=== PATIENT | female | born 1980 | race Caucasian/White ===

== ENCOUNTER 2016-08-18 16:03 | Inpatient (IN) | payer OTHER ==
[~2016-08-18] VITALS: Ht 170.2 cm; Wt 59.0 kg
--- NOTE | 2016-08-18 17:01 | NUR ---
PT TO ED FOR FEVERS/CHILLS/ALL OVER BODY PAIN S/P SPIDER BITE 1 WEEK AGO. PT NOTED WITH BITE TO L SHOULDER BLADE. BACK RED/HOT TO TOUCH. TEMP 104.0 IN TRIAGE, HR 156 APICALLY. PT AWAKE/ALERT WITH EASY WOB. MEDICATED WITH 650MG TYLENOL AND 400MG MOTRIN IN TRIAGE. PRECIOUS Rod TO TRIAGE FOR EVAL.
--- NOTE | 2016-08-18 17:06 | NUR ---
PT AMB WITH SLOW GAIT TO ROOM 6, SUPPORTED BY THIS RN. REPORTS DIZZINESS UPON STANDING AND THROBBING VIGIL. DENIED OFFER FOR WHEELCHAIR. TO ROOM 6, PLACED ON PRECIOUS SUE AND MD NOVAK AT BEDSIDE FOR EVAL.
--- NOTE | 2016-08-18 17:15 | ED SKIN/ALLERGY COMPLAINT ---
History of Present Illness General Chief Complaint: Animal/Insect Bite Stated Complaint: ?INSECT BITE Source: patient, family, old records Exam Limitations: no limitations Vital Signs & Intake/Output Vital Signs & Intake/Output Vital Signs Date Time Temp Pulse Resp B/P B/P Pulse O2 O2 Flow FiO2 Mean Ox Delivery Rate 08/18 1941 98.6 08/18 1941 98.6 08/18 1937 98.6 107 18 116/67 99 Room Air 08/18 1701 104.0 08/18 1701 104.0 08/18 1651 104.0 156 20 123/75 99 Room Air Triage Note: PT TO ED FOR FEVERS/CHILLS/ALL OVER BODY PAIN S/P SPIDER BITE 1 WEEK AGO. PT NOTED WITH BITE TO L SHOULDER BLADE. BACK RED/HOT TO TOUCH. TEMP 104.0 IN TRIAGE, HR 156 APICALLY. PT AWAKE/ALERT WITH EASY WOB. MEDICATED WITH 650MG TYLENOL AND 400MG MOTRIN IN TRIAGE. PRECIOUS GARLAND H TO TRIAGE FOR EVAL. Triage Nurses Notes Reviewed? yes Onset: Abrupt Duration: day(s): (5), constant Timing: recent history Severity: moderate, severe Severity Numbers: 10 Location: BACK No Modifying Factors: none : No Patient currently breastfeeds: No HPI: Is a 36-year-old female with no medical history presents complaining of fever chills poor appetite and generalized bodyaches for the past 5 days. The patient states that she believes she may benefit an insect or spider on her back. She states last Thursday she began to notice a rash that was painful aching throbbing associated with fever chills. She denies a discharge no other rashes were body. She's been taking Tylenol Motrin for her fevers without improvement she reports to nausea denies vomiting poor appetite no sick contacts no recent travel no recent antibiotic use. She denies chest pain abdominal pain shortness of breath (ADAL LANG,GILL) Allergies Coded Allergies: codeine (N/V 08/18/16) morphine (FEVER, HIVES 08/18/16) povidone-iodine (From BETADINE) (FEVER, HIVES 08/18/16) soap (From BETADINE) (FEVER, HIVES 08/18/16) Reconcile Medications Multivitamin (Multi-Day Vitamins) 1 EACH TABLET 1 TAB PO DAILY SUPPLEMENT ( Reported) (KISHORE DOLL,KIRIT) Past History Travel History Traveled to [place] past 21 day No Medical History Any Pertinent Medical History? none Neurological: NONE EENT: NONE Cardiovascular: NONE Respiratory: NONE Gastrointestinal: NONE Hepatic: NONE Renal: NONE Musculoskeletal: NONE Psychiatric: NONE Endocrine: NONE Surgical History Surgical History: non-contributory Psychosocial History What is your primary language Mohawk Tobacco Use: Never used Family History Hx Contributory? No (GILL DAVILA) Review of Systems Review of Systems Constitutional: Reports: see HPI. All Other Systems: Reviewed and Negative Comments Review of systems: See HPI, All other systems negative. Constitutional, chills fever, malaise no weight loss HEENT: no sore throat no congestion, no ear pain Cardiovascular: No chest pain , no palpitation , no orthopnea Skin: no rashes, no change in skin Respiratory: No dyspnea no cough no sputum GI: nausea no vomiting, no diarrhea, no bloating/constipation : No dysuria No hematuria, Muscle skeletal: No joint pain, no back pain, no neck pain, Neurologic: No numbness no headache Psych: No stress Heme/endocrine: No bruising Immunology: No lymphadenopathy (GILL DAVILA) Physical Exam Physical Exam General Appearance: well developed/nourished, no apparent distress, alert, awake Comments: Well-developed well-nourished person in no acute distress HEENT: Normal EENT exam; PERRL, EOMI, HEAD is atraumatic. moist mucous membranes. Neck: Supple,, normal range of motion Back: Nontender, no CVA tenderness. Full range of motion Cardiovascular: Tachycardic, regular rhythm no murmurs rubs Respiratory: Chest nontender.There were no bony deformities, no asymmetry. No respiratory distress. Patient speaking in full complete sentences. Breath sounds clear to auscultation bilaterally: NO W/R/R Abdomen: Soft, nontender nondistended, Extremity: No edema, full range of motion of extremities,5 out of 5 strength noted to bilateral upper and lower extremities Neuro: Alert oriented x3, motor sensory normal, There were no obvious focal neurologic abnormalities. Skin: There is a large area of erythema noted to the upper back extending acrtoss the entire upper back with a central vesicular lesion 2x 2cm, tender to palpation no induration or fluctuance no discharge elicited from the vesicles No appreciable rash on exposed skin, skin is warm and dry. Psych: Mood and affect is normal, memory and judgment is normal. (ADAL LANG,GILL) Progress Differential Diagnosis: abscess/cellulitis, contact dermatitis, drug reaction, erythema multiforme, lyme disease, RMSF, shingles, urticaria Plan of Care: Orders Procedure Date/time Status Vital Signs 08/18 2010 Active Teach/Educate 08/18 2010 Active Pain Treatment and Response 08/18 2010 Active Nutritional Intake, Monitor 08/18 2010 Active Isolation 08/18 2010 Active Intake & Output 08/18 2010 Active Patient Care Conference 08/18 2010 Active Activity/Ambulation 08/18 2010 Active LACTIC ACID 08/19 1999 Active Pathway - chart 08/18 1938 Active Admit to inpatient 08/18 1815 Active TRC EVALUATION (GEN) 08/18 1803 Active OXYGEN SETUP (GEN) 08/18 1803 Active Pathway - chart 08/18 1803 Active House Staff 08/18 1803 Active Patient Data 08/18 1803 Active Code Status 08/18 1803 Active Patient Data 08/18 1759 Active LYME TITRE 08/18 1709 Active EKG 08/18 1701 Active Saline Lock 08/18 1700 Active BLOOD CULTURE 08/18 1700 Active LACTIC ACID 08/18 1700 Complete COMPREHENSIVE METABOLIC PANEL 08/18 1700 Complete CBC WITHOUT DIFFERENTIAL 08/18 1700 Complete VTE Mechanical Prophylaxis 08/18 UNK Active Vital Signs 08/18 UNK Active MISTAKE 08/18 UNK Active Intake & Output 08/18 UNK Active Current Medications Sig/Stu Start time Last Medication Dose Stop Time Status Admin Doxycycline Hyclate 100 MG Q12H 08/19 0800 AC (Vibramycin) Sodium Chloride 100 ML (Normal Saline 0.9%) Acetaminophen 650 MG Q4P PRN 08/18 1944 AC (Tylenol) Ibuprofen 400 MG Q6P PRN 08/18 1944 AC (Motrin) Sodium Chloride 1,000 ML ONCE ONE 08/18 1944 AC 08/18 (Normal Saline 0.9%) 08/19 Laboratory Tests 08/18/16 1734: Lyme Disease Antibody Pending 08/18/16 1720: Anion Gap 11, Estimated GFR > 60, BUN/Creatinine Ratio 8.8, Glucose 114 H, Lactic Acid 1.6, Calcium 9.1, Total Bilirubin 0.3, AST 68 H, ALT 94 H, Alkaline Phosphatase 83, Total Protein 7.0, Albumin 3.9, Globulin 3.1, Albumin/ Globulin Ratio 1.3, CBC w Diff NO MAN DIFF REQ, RBC 4.78, MCV 82.6, MCH 27.0, RDW 13.6, MPV 7.2 L, Gran % 85.2 H, Lymphocytes % 7.4 L, Monocytes % 6.8, Eosinophils % 0.1, Basophils % 0.5, Absolute Granulocytes 5.4, Absolute Lymphocytes 0.5 L, Absolute Monocytes 0.4, Absolute Eosinophils 0, Absolute Basophils 0, PUBS MCHC 32.6 L Microbiology 08/18 173 BLOOD: Blood Culture - RECD 08/19 1719 BLOOD: Blood Culture - RECD Labs ordered old records reviewed patient was seen and evaluated by Dr. Paredes who agrees with plan Discussed with the patient family at length all of her lab results today case was discussed with Dr. Santamaria who will admit patient is in agreement with plan 1800 Patient seen and evaluated by Dr. Santamaria advised to give doxycycline 100 mg IV for suspected Lyme (GILL DAVILA) Initial ED EKG: STACH AT 130, NO ACUTE ST SEG CHANGES (GILL DAVILA) Departure Departure Time of Disposition: 1753 Disposition: HOME OR SELF CARE Condition: Stable Clinical Impression Primary Impression: Cellulitis Referrals: RY DOLL,GLEN Departure Forms: Customer Survey General Discharge Information Admission Note Spoke With: SAMIRA SANTAMARIA MD Documentation of Exam: Documentation of any treatments & extenuating circumstances including Concerns Regarding Discharge (functional status, medication knowledge or non-compliance, living conditions, etc.) that warrant an admission rather than observation: WILL WILL REQUIRE IV ANTIBIOTICS, IV FLUIDS, ID CONSULT, TREND LABS AND LYME TITRE PREMATURE DISCHARGE WOULD BE MEDICALLY HARMFUL (GILL DAVILA) PA/WEATHER REPORTER Co-Sign Statement Statement: ED Attending supervision documentation- [X] I saw and evaluated the patient. I have also reviewed all the pertinent lab results and diagnostic results. I agree with the findings and the plan of care as documented in the PA's/WEATHER REPORTER's documentation. [X] I have reviewed the ED Record and agree with the PA's/WEATHER REPORTER's documentation. [] Additions or exceptions (if any) to the PAs/WEATHER REPORTER's note and plan are summarized below: [] (KISHORE DOLL,KIRIT)
[2016-08-18 17:32] LABS: ABSOLUTE BASOPHIL COUNT 0 /CUMM (0.0-0.2); ABSOLUTE EOSINOPHIL COUNT 0 /CUMM (0.0-0.7); ABSOLUTE GRANULOCYTE CT 5.4 /CUMM (1.4-6.5); ABSOLUTE LYMPH COUNT 0.5 /CUMM (1.2-3.4); ABSOLUTE MONOCYTE COUNT 0.4 /CUMM (0.10-0.60); BASOPHIL % 0.5 % (0.0-2.0); EOSINOPHIL % 0.1 % (0-5); GRANULOCYTE % 85.2 % (42.2-75.2); HEMATOCRIT 39.4 % (37-47); MEAN CORPUSCULAR HGB CONC 32.6 G/DL (33.0-37.0); MEAN CORPUSCULAR VOLUME 82.6 FL (81.0-99.0); MEAN PLATELET VOLUME 7.2 FL (7.4-10.4); PLATELET COUNT 220 /CUMM (130-400); RBC DISTRIBUTION WIDTH 13.6 % (11.5-14.5); RED BLOOD CELL CT 4.78 /CUMM (4.20-5.40); WHITE BLOOD CELL COUNT 6.3 /CUMM (4.8-10.8)
--- NOTE | 2016-08-18 17:37 | NUR ---
2ND SET OF CULTURES AND SST SENT BY THIS MST.
--- NOTE | 2016-08-18 18:22 | History & Physical ---
CLAYTON DOLL,[facility] 08/18/161818: General Information and HPI MD Statement: I have seen and personally examined VICKI BEEBE and documented this H&P. The patient is a 36 year old F who presented with a patient stated chief complaint of [??animal bite, fever, myalgias]. Source of Information: patient, EMS Exam Limitations: no limitations History of Present Illness: Patient is a 36 YO F with no significant PMH presented to the [facility] ER with fevers chills and progressively worsening myalgias started a week ago. Last patient started noticing sore spot on her left shoulder blade region, which turned out to be an open wound after 2 days and now surrounded by a few bumps (papules) associated with significant tenderness. She also started to develop headache, feeling hot around the sore spot, fevers and chills, myalgias which were progressively worsened despite occasional Tylenol and ibuprofen. She also reports poor appetite with a dry cough and pain with deep breathing. She denies any heart racing, chest pain, any syncopal episodes /falls. She denies any nausea, vomiting, diarrhea, changes with urination/bowel habits. Last before weekend patient remembers doing gardening with her boyfriend, she couldn't recall any tick/spider bite in the past few days. 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 In addition house is surrounded by mayers, trees with small brown spiders (neither brown recluse nor black ). She had one dog, two cats at home. No primary care physician No smoking/alcohol/drugs. Allergies/Medications Allergies: Coded Allergies: codeine (N/V 08/18/16) morphine (FEVER, HIVES 08/18/16) povidone-iodine (From BETADINE) (FEVER, HIVES 08/18/16) soap (From BETADINE) (FEVER, HIVES 08/18/16) Home Med list Multivitamin (Multi-Day Vitamins) 1 EACH TABLET 1 TAB PO DAILY SUPPLEMENT ( Reported) Compliance With Home Meds: UNKNOWN (gus she is is) Past History Travel History Traveled to [place] past 21 day No Medical History Neurological: NONE EENT: NONE Cardiovascular: NONE Respiratory: NONE Gastrointestinal: NONE Hepatic: NONE Renal: NONE Musculoskeletal: NONE Psychiatric: NONE Endocrine: NONE Surgical History Surgical History: non-contributory Past Family/Social History Psychosocial History Past Psychosocial History Unobtainable at this time Where do you live? Home Who Do You Live With? self Services at Home: None Primary Language: Bermudian Smoking Status: Never Smoked ETOH Use: denies use Illicit Drug Use: denies illicit drug use Functional Ability ADLs Independent: dressing, eating, toileting, bathing. Ambulation: independent IADLs Independent: shopping, housework, finances, food prep, telephone, transportation , medication admin. Sexual History Sexually Active Yes Employment History Employment Employed Profession/Employer works in [employer] Review of Systems Review of Systems Constitutional: Reports: see HPI, chills, fever, malaise, weakness. EENTM: Reports: no symptoms. Cardiovascular: Reports: no symptoms. Respiratory: Reports: cough. GI: Reports: no symptoms. Genitourinary: Reports: no symptoms. Musculoskeletal: Reports: back pain, muscle pain. Skin: Reports: change in skin color, lesions. Neurological/Psychological: Reports: see HPI. Hematologic/Endocrine: Reports: no symptoms. Immunologic/Allergic: Reports: no symptoms. All Other Systems: Reviewed and Negative Exam & Diagnostic Data Last 24 Hrs of Vital Signs/I&O Vital Signs Date Time Temp Pulse Resp B/P B/P Pulse O2 O2 Flow FiO2 Mean Ox Delivery Rate 08/18 1701 104.0 08/18 1701 104.0 08/18 1651 104.0 156 20 123/75 99 Room Air Physical Exam General Appearance Alert, Oriented X3, Cooperative, No Acute Distress Skin a spot on the left shoulder blade surrounded by annular erythema without any evident discharge, blisters. Significant tenderness to palpation with small papules surrounding the lesion, hot to touch HEENT Atraumatic, PERRLA Neck Supple Cardiovascular Regular Rate, Normal S1, Normal S2 Lungs Clear to Auscultation, Normal Air Movement Abdomen Normal Bowel Sounds, Soft, No Tenderness Neurological Normal Speech, Strength at 5/5 X4 Ext, Normal Tone, Sensation Intact, Cranial Nerves 3-12 NL, Reflexes 2+ Extremities No Clubbing, No Cyanosis, No Edema Vascular Normal Pulses, Pulses Symmetrical Body Front and Back (Adult) 1) Skin lesion surrounded by annular erythema 2) Extensive tattoos 3) Tattoos 4) Tattoos Last 24 Hrs of Labs/Deejay: Laboratory Tests 08/18/161733: Lyme Disease Antibody Pending 08/18/161719: Anion Gap 11, Estimated GFR > 60, BUN/Creatinine Ratio 8.8, Glucose 114 H, Lactic Acid 1.6, Calcium 9.1, Total Bilirubin 0.3, AST 68 H, ALT 94 H, Alkaline Phosphatase 83, Total Protein 7.0, Albumin 3.9, Globulin 3.1, Albumin/ Globulin Ratio 1.3, CBC w Diff NO MAN DIFF REQ, RBC 4.78, MCV 82.6, MCH 27.0, RDW 13.6, MPV 7.2 L, Gran % 85.2 H, Lymphocytes % 7.4 L, Monocytes % 6.8, Eosinophils % 0.1, Basophils % 0.5, Absolute Granulocytes 5.4, Absolute Lymphocytes 0.5 L, Absolute Monocytes 0.4, Absolute Eosinophils 0, Absolute Basophils 0, PUBS MCHC 32.6 L Microbiology 08/18 1733 BLOOD: Blood Culture - RECD 08/19 1719 BLOOD: Blood Culture - RECD Diagnostic Data EKG Results Sinus tachycardia with normal MD interval Assessment/Plan Assessment: Patient is a 36-year-old female with no significant past medical history who works in animal [employer] where she comes across with dogs with ticks embedded in them presented with fever, chills, myalgias, fatigue for the past 1 week. She is febrile at presentation with a Tmax of 104, tachycardic (HR 156), appears toxic. On examination there is a skin lesion in the left shoulder. With tender annular rash although masked with extensive tattoos. At this point my differentials include acute Lyme's disease, spider bite (probably brown recluse) , STARI (southern tick associated rash illness). Admitted to general medicine floor Acute febrile illness with rash - presumably acute Lyme's disease * Started on IV Unasyn and IV doxycycline in the ED * Continue IV doxycycline 100 mg every 12 * She doesn't really recall any tick bite/spider bite recently - presumably tick bite due to associated anesthetic effect * Aggressive hydration with IV fluids * IV Tylenol/oral Tylenol to maintain temperature within normal limits * Check Lyme titers * Close monitoring of vitals * Pain control with Tylenol/ibuprofen * Patient reports hives secondary to opiates - we will try to avoid at the moment to prevent confusion * ID consult tomorrow morning if required * Daily CBC (no leukopenia/thrombus cytopenia/anemia at the moment) Extensive tattoos * Patient had tattoos all over her body. * Rash is not clearly demarcated secondary to tattoos. * Check hepatitis panel * Denies any drug abuse/alcohol/smoking DVT prophylaxis * Alps CODE STATUS * Full code As Ranked By This Provider Problem List: 1. At high risk for tick borne illness 2. Lyme disease 3. Animal bite with open wound Core Measures/Miscellaneous Acute Coronary Syndrome ACS Diagnosis: No Cerebrovascular Accident CVA/TIA Diagnosis: No Congestive Heart Failure CHF Diagnosis: No VTE (View Protocol) VTE Risk Factors: Immobility, paresis [facility] prophylaxis d/t: No contraindications No VTE Pharm Prophylaxis d/t: No contraindications VTE Diagnosis: No VTE Type: NONE VTE Confirmed by (Test): NONE Sepsis (View Protocol) Severe Sepsis Present: No Septic Shock Septic Shock Present: No Miscellaneous Documentation Attending Case Discussed With: Alireza Lugo MD Primary Care Physician: PATIENT HAS NO PRIMARY CARE DR Patient sees these Specialists NO one Level of Patient Care: General Medicine NIKKI BALLARD 08/18/16 1852: Resident Review Statement Resident Statement: examined this patient, discussed with spring intern, agreed with spring intern, discussed with family, reviewed EMR data (avail) Other Findings: This is a 36 YO F w/no significant PMH who presents to the ED for fever to 104 degrees, chills, arthralgia, myalgias, headache for approx 5 days. She noted a tender erythemtous rash on her back, but does not remember having a tick bite. Reports h/o tick exposure. Denies any n/v/dizziness, cough,dyspnea, abd pain. Ph/ex on admission: Max Temp of 104, MD 156, BP stable, adequate o2 sat on RA. NAD, AAOx3, HEENT: HNCAT, PERRLA, EOMI, Dry mucous membrane, NL pharynx. Neck: supple,no LAD CV: tachycardic, no murmur. Lungs: CTABL, Abd: NL BS, NT, ND. Ext: no LE edema. Neurology : CN 3-12 intact, NL speech, sensation intact, strength intact. Skin: erythematous lesion on upper back extending from right shoulder to left. Central vesicular lesions noted on the rash. Multiple tattoos on different parts of body including back. Available lab and imaging data reviwed. Assessment/Plan: #Fever, skin rash: h/o tick exposure,also has concern for spider bite, no leukocytosis noted. No discharge or pus. Likely lyme disease. Patient was started on Doxycycline 100 MG BID. Lyme titers pending. Consider ID evaluation. #Sinus Tachycardia: no murmur. Likely 2/2 fever and dehydration. Will maintain the patient on tylenol and ibuprofen prn and IV hydation. #DVT PPx: SC Lovenox #Full code. ALIREZA LUGO MD 08/18/16 2010: Attending MD Review Statement Attending Statement Attending MD Statement: examined this patient, discuss w/resident/PA/SCHOOL LIBRARY MEDIA PROGRAM DIRECTOR, agreed w/resident/PA/SCHOOL LIBRARY MEDIA PROGRAM DIRECTOR, discussed with family, reviewed EMR data (avail), reviewed images, amended to note Attending Assessment/Plan: The patient is a 36 yo female without significant PMH who presented in the [facility] with 5 day history of fever to 104 degrees, myalgias/arthralgias./ chills/headache and malaise. She did note some tenderness of her upper back and erythema. She was concerned she may have had a spider bite, however did not experience a bite. She was working in the garden and does have tick exposure. She denied any abdominal pain, nausea, vomiting, dysuria, cough or dyspnea. She has had diminished appetite. Physical Exam: T 104, P 156-130, R 20, BP 123/75,PO 99% RA HEENT: eyes- PERRLA, EOMI apryl- dry mucosa Neck: no adenopathy Chest: clear Cor: tachy, reg, nl S1, S2 w/o murm Abd: BS+, soft, NT, - HSM Ext: no edema Neuro: alert & oriented x 2, non-focal exam Derm: + large area of erythema on upper back with mild tenderness, central vesicular lesion (small), + warmth, multiple tattoos on back and other parts of body Labs/Tests- as above Impression/Plan: #Fever/Chills- with normal WBC and erythematous rash on back. Symptoms most suggestive of Lyme disease. Cannot entirely exclude infected bite. No purulence. Has significant fever. Plan: Admit to general medicine. [place] culture and begin IV Abx (Unasyn given in ED and will add Doxycycline). Check Lyme titer/tick panel. Please draw border with marker around area of erythema on back. Consider ID evaluation pending clinical course. #Tachycardia- sinus tachycardia with no murm. Most likely secondary to fever and volume depletion (has had high fever). Plan: Agree with tylenol/ibuprofen and IV hydration. Follow HR.
--- NOTE | 2016-08-18 19:08 | NUR ---
PT ADMITTED TO ROOM 204-2
[2016-08-18] MEDS ORDERED: MULTI-DAY VITA1 EACH PO (19:52)
--- NOTE | 2016-08-18 20:10 | Admission Certification ---
Admission Certification Certification Statement - As attending physician, I certify that at the time of - admission, based on clinical presentation, severity of - symptoms, need for further diagnostic testing and - therapeutic interventions, and risk of adverse outcomes - without in-hospital treatment, in my clinical assessment, - this patient requires an acute hospital stay for a minimum - of two nights or longer. I have also considered psychsocial - factors such as support system, advanced age, financial - issues, cognitive issues, and failed out-patient treatments, - past re-admission history, safety of patient, and lack of - compliance as applicable. Specific rationale supporting this admission is: The patient presents with fever to 104 degrees, tachycardia (130's) and back lesion that most likely represent acute Lyme disease (cannot exclude cellulitis) . Needs admission for IV fluids, tylenol/ibuprofen, flores culture and check Tick pane. IV antibiotics (Unasyn given in ED and added Doxycycline).
--- NOTE | 2016-08-18 20:31 | NUR ---
PT ARRIVED FROM ER VIA STRETCHER. A&OX3, VSS. LEFT SHOULDER BLADE WITH SMALL BITE, UPPER BACK RED AND WARM TO TOUCH. ORIENTED PT TO ROOM AND CALL SYSTEM. WILL MONITOR.
[2016-08-18 23:04] VITALS: BP 102/68
[2016-08-19 02:45] VITALS: BP 110/70
--- NOTE | 2016-08-19 02:52 | NUR ---
PT NOTED TO HAVE ORBITAL EDEMA AND INCREASED WEAKNESS. GATE SUPERVISOR ALLEGRA NOTIFIED AND UP TO SEE PT. PT'S VS REMAIN STABLE. WILL MONITOR
[2016-08-19 06:30] VITALS: BP 90/57
[2016-08-19 08:55] LABS: ABSOLUTE BASOPHIL COUNT 0 /CUMM (0.0-0.2); ABSOLUTE EOSINOPHIL COUNT 0 /CUMM (0.0-0.7); ABSOLUTE GRANULOCYTE CT 7.6 /CUMM (1.4-6.5); ABSOLUTE LYMPH COUNT 0.8 /CUMM (1.2-3.4); ABSOLUTE MONOCYTE COUNT 0.6 /CUMM (0.10-0.60); BASOPHIL % 0.2 % (0.0-2.0); EOSINOPHIL % 0.2 % (0-5); GRANULOCYTE % 84.8 % (42.2-75.2); HEMATOCRIT 34.6 % (37-47); MEAN CORPUSCULAR HGB 26.9 PG (27.0-31.0); MEAN CORPUSCULAR HGB CONC 32.4 G/DL (33.0-37.0); MEAN PLATELET VOLUME 7.8 FL (7.4-10.4); PLATELET COUNT 164 /CUMM (130-400); RBC DISTRIBUTION WIDTH 14.1 % (11.5-14.5); RED BLOOD CELL CT 4.16 /CUMM (4.20-5.40)
--- NOTE | 2016-08-19 10:48 | PN- Housestaff ---
CLAYTON DOLL,CARLITO 08/19/16 1048: Subjective Follow-up For: febrile illness with rash Subjective: I saw the patient today morning She is still having significant body aches with nausea. Overall feels better. No overnight events. She still had mild fevers, feeling weak, sore. able to tolerate food. Review of Systems Constitutional: Reports: see HPI. Comments: ROS negative except the above Objective Last 24 Hrs of Vital Signs/I&O Vital Signs Date Time Temp Pulse Resp B/P B/P Pulse O2 O2 Flow FiO2 Mean Ox Delivery Rate 08/19 0630 98.4 107 18 90/57 99 Room Air 08/19 0245 99.0 115 110/70 100 08/18 2304 99.0 104 20 102/68 99 Room Air 08/18 2208 Room Air Room Air 08/18 194 98.6 08/18 1942 98.6 08/18 1938 98.6 107 18 116/67 99 Room Air 08/18 1701 104.0 08/18 1701 104.0 08/18 1651 104.0 156 20 123/75 99 Room Air Intake & Output 08/19 1600 08/19 0800 08/19 0000 Intake Total 450 2400 Output Total Balance 450 2400 Intake, IV 450 2400 Patient 58.967 kg Weight Weight Reported by Patient Measurement Method Physical Exam General Appearance: Alert, Oriented X3, Cooperative Skin: lesion in the left shoulder blader with annular rash , extensive tattoos HEENT: Atraumatic, PERRLA, EOMI Neck: Supple Cardiovascular: Normal S1, Normal S2 Lungs: Clear to Auscultation, Normal Air Movement Abdomen: Normal Bowel Sounds, Soft, No Tenderness Neurological: Strength at 5/5 X4 Ext, Normal Tone, Sensation Intact Extremities: No Clubbing, No Cyanosis, No Edema Vascular: Normal Pulses, Pulses Symmetrical Current Medications: Current Medications Sig/Stu Start time Last Medication Dose Route Stop Time Status Admin Acetaminophen 650 MG .STK-MED ONE 08/19 0245 DC PO 08/19 0246 Acetaminophen 650 MG Q4P PRN 08/18 194 AC 08/19 PO 0251 Acetaminophen 650 MG ONCE ONE 08/18 1700 DC 08/18 PO 08/18 170 1701 Ampicillin Sodium/ 0 .STK-MED ONE 08/18 1743 DC Sulbactam Sodium .ROUTE Ampicillin Sodium/ 3,000 MG ONCE ONE 08/18 1715 DC 08/18 Sulbactam Sodium IV 08/18 1744 1737 Sodium Chloride 100 ML Cyclobenzaprine HCl 10 MG ONCE ONE 08/19 0300 DC 08/19 PO 08/19 0301 0315 Doxycycline Hyclate 100 MG Q12H 08/19 0800 AC 08/19 Sodium Chloride 100 ML IV 0823 Doxycycline Hyclate 100 MG ONCE ONE 08/18 1815 DC 08/18 Sodium Chloride 100 ML IV 08/18 1920 1910 Enoxaparin Sodium 40 MG DAILY 08/19 1000 AC 08/19 SC 0930 Ibuprofen 400 MG Q6P PRN 08/18 1945 AC 08/18 PO 2218 Ibuprofen 400 MG ONCE ONE 08/18 1700 DC 08/18 PO 08/18 1701 1701 Ketorolac 30 MG Q6-PRN PRN 08/19 0300 AC 08/19 Tromethamine IV 1033 Ketorolac 0 .STK-MED ONE 08/18 1739 DC Tromethamine .ROUTE Ketorolac 30 MG ONCE ONE 08/18 1700 DC 08/18 Tromethamine IV 08/18 1701 1735 Lidocaine 1 PAT DAILY 08/19 1000 DC EXT Lidocaine 1 PAT DAILY 08/19 0300 AC 08/19 EXT 0314 Ondansetron HCl 4 MG Q6P PRN 08/19 1300 AC IV Ondansetron HCl 4 MG ONCE ONE 08/19 0900 DC 08/19 IV 08/19 0901 0900 Sodium Chloride 1,000 ML ONCE ONE 08/18 1945 DC 08/18 IV 08/19 0224 2008 Sodium Chloride 1,000 ML BOLUS ONE 08/18 171 DC 08/18 IV 08/18 1814 1830 Sodium Chloride 1,000 ML BOLUS ONE 08/18 1700 DC 08/18 IV 08/18 1759 1731 Sodium Chloride 1,000 ML BOLUS ONE 08/18 1700 DC 08/18 IV 08/18 1759 1731 Last 24 Hrs of Lab/Deejay Results Last 24 Hrs of Labs/Mics: Laboratory Tests 08/19/16 0750: CBC w Diff MAN DIFF ORDERED, RBC 4.16 L, MCV 83.0, MCH 26.9 L, RDW 14.1, MPV 7.8, Gran % 84.8 H, Lymphocytes % 8.5 L, Monocytes % 6.3, Eosinophils % 0.2, Basophils % 0.2, Absolute Granulocytes 7.6 H, Segmented Neutrophils 74, Band Neutrophils 8 H, Absolute Lymphocytes 0.8 L, Lymphocytes 12 L, Monocytes 5, Absolute Monocytes 0.6, Absolute Eosinophils 0, Basophils 1, Absolute Basophils 0, Platelet Estimate VERIFIED BY SMEAR, Poikilocytosis 1+, Ovalocytes 1+, Vishnu Cells 1+, PUBS MCHC 32.4 L 08/19/16 0630: Anion Gap 8, Estimated GFR > 60, BUN/Creatinine Ratio 8.3, Lactic Acid 1.0 08/18/16 2000: Lactic Acid Cancelled Assessment/Plan Assessment: Patient is a 36-year-old female with no significant past medical history 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 She is febrile at presentation with a Tmax of 104, tachycardic (HR 156), appears toxic. On examination there is a skin lesion in the left shoulder. With tender annular rash although masked with extensive tattoos. At this point my differentials include acute Lyme's disease, spider bite (probably brown recluse) , STARI (southern tick associated rash illness). Admitted to general medicine floor Acute febrile illness with rash - presumably acute Lyme's disease * Started on IV Unasyn 1.5gm Q6 to cover both cellulitis and lymes although its unclear for now. * She doesn't really recall any tick bite/spider bite recently - presumably tick bite due to associated anesthetic effect * Lyme titers shows 0.99, pending further results * Pain control with Tylenol/ibuprofen * Patient reports hives secondary to opiates - we will try to avoid at the moment to prevent confusion * is on board - appreciate recommendations. * Daily CBC (no leukopenia/thrombus cytopenia/anemia at the moment) Extensive tattoos * Patient had tattoos all over her body. * Rash is not clearly demarcated secondary to tattoos. * Check hepatitis panel * Denies any drug abuse/alcohol/smoking DVT prophylaxis * Alps CODE STATUS * Full code Problem List: 1. Lyme disease 2. Cellulitis 3. At high risk for tick borne illness 4. Animal bite with open wound Pain Ratin Pain Location: Left shoulder pain Pain Goal: Pain 4 or less Pain Plan: Tylenol Ibuprofen Tomorrow's Labs & Rationales: cbc to monitor H&H, white count and platelets ISAURO CHASE MD 08/19/16 1211: Attending MD Review Statement Attending Statement Attending MD Statement: examined this patient, discuss w/resident/PA/LEI MAKER, agreed w/resident/PA/LEI MAKER, reviewed EMR data (avail) Attending Assessment/Plan: 36F no PMH presenting with 1 week of rash on her left upper back that has become warmer, more tender, has spread to involve more of her left upper back, now with fever 104, myalgia, and weakness. Appears to have remnants of a bite torri on her back. Was doing a lot of work in the [employer] but does not recall being bit. No fluctuance or areas of fluid collection. Back is warm, erythematous, and tender without discharge. 1. Sepsis 2. Left upper back cellulitis 3. Diffuse myalgia 4. Generalized weakness Plan - Continue on general medicine - Continue Unasyn - Follow cultures - Reculture if febrile - IV hydration - Tylenol PRN - ID consult - DVT PPx
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
[2016-08-19 14:11] VITALS: BP 104/62
--- NOTE | 2016-08-19 17:43 | NUR ---
NURSING NOTE: THIS RN WAS CALLED INTO THE PATIENT'S ROOM C/O MORE SWELLING, REDNESS, IRRITATION AND PAIN TO HER RIGHT EYE. VITALS TAKEN AT THIS TIME: 99.8, 130/78, 117, 18, 94% RA. INSOLE FILLER MALKA (137) NOTIFIED AND WILL COME TO ASSESS PATIENT.
[2016-08-19 17:47] VITALS: BP 130/78
[2016-08-19 23:18] VITALS: BP 102/69
[2016-08-20 06:30] VITALS: BP 110/70
--- NOTE | 2016-08-20 07:21 | PN- Housestaff ---
CLAYTON DOLL,CARLITO 08/20/16 0720: Subjective Follow-up For: Rash with febrile illness Subjective: I signed examined the patient today morning She is doing better in terms of her back pain, neck pain. She feels her face is swollen and edematous. She is concerned about diarrhea with antibiotic intake and requested lactobacillus, (provided). She denies any fevers/chills overnight. Review of Systems Constitutional: Reports: see HPI. Comments: Otherwise negative except above Objective Last 24 Hrs of Vital Signs/I&O Vital Signs Date Time Temp Pulse Resp B/P B/P Pulse O2 O2 Flow FiO2 Mean Ox Delivery Rate 08/19 2318 98.5 90 18 102/69 99 Room Air 08/19 1747 117 18 130/78 94 Room Air 08/19 1740 99.8 08/19 1411 99.0 97 20 104/62 100 Room Air Intake & Output 08/20 0800 08/20 0000 08/19 1600 Intake Total 300 250 600 Output Total 200 Balance 100 250 600 Intake, IV 200 100 Intake, Oral 100 250 500 Number 0 Bowel Movements Output, Urine 200 Physical Exam General Appearance: Alert, Oriented X3, Cooperative Skin: skin rash - improved, still hot and tender to touch HEENT: Atraumatic, PERRLA Neck: Supple Cardiovascular: Normal S1, Normal S2 Lungs: Clear to Auscultation, Normal Air Movement Abdomen: Normal Bowel Sounds, Soft, No Tenderness Neurological: Normal Gait, Normal Speech, Strength at 5/5 X4 Ext, Normal Tone, Sensation Intact Extremities: No Clubbing, No Cyanosis, No Edema Vascular: Normal Pulses, Pulses Symmetrical Current Medications: Current Medications Sig/Stu Start time Last Medication Dose Route Stop Time Status Admin Acetaminophen 650 MG Q4P PRN 08/18 1944 AC 08/19 PO 0251 Ampicillin Sodium/ 1,500 MG Q6 08/19 1328 AC 08/20 Sulbactam Sodium IV 0534 Sodium Chloride 100 ML Doxycycline Hyclate 100 MG Q12H 08/19 0800 DC 08/19 Sodium Chloride 100 ML IV 0823 Enoxaparin Sodium 40 MG DAILY 08/19 1000 AC 08/19 SC 0930 Ibuprofen 400 MG Q6P PRN 08/18 194 AC 08/18 PO 2218 Ketorolac 30 MG Q6-PRN PRN 08/19 0300 AC 08/19 Tromethamine IV 1759 Lidocaine 1 PAT DAILY 08/19 1000 DC EXT Lidocaine 1 PAT DAILY 08/19 0300 AC 08/19 EXT 0314 Ondansetron HCl 4 MG Q6P PRN 08/19 1300 AC IV Ondansetron HCl 4 MG ONCE ONE 08/19 0900 DC 08/19 IV 08/19 09 0900 Assessment/Plan Assessment: Patient is a 36-year-old female with no significant past medical history who 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 She is febrile at presentation with a Tmax of 104, tachycardic (HR 156), appears toxic. On examination there is a skin lesion in the left shoulder. With tender annular rash although masked with extensive tattoos. At this point my differentials include acute Lyme's disease, spider bite (probably brown recluse) , STARI (southern tick associated rash illness). Admitted to general medicine floor Acute febrile illness with rash - presumably acute Lyme's disease * Started on IV Unasyn 1.5gm Q6 to cover both cellulitis and lymes although its unclear for now - as improving we will converted to Augmentin twice a day tomorrow for a total course of 14 days. * She doesn't really recall any tick bite/spider bite recently - presumably tick bite due to associated anesthetic effect * Lyme titers shows 0.99, pending further send outs * Pain control with Tylenol/ibuprofen * Patient reports hives secondary to opiates - we will try to avoid at the moment to prevent confusion * is on board - appreciate recommendations. * Daily CBC (no leukopenia/thrombus cytopenia/anemia at the moment) Extensive tattoos * Patient had tattoos all over her body. * Rash is not clearly demarcated secondary to tattoos. * Check hepatitis panel * Denies any drug abuse/alcohol/smoking DVT prophylaxis * Alps CODE STATUS * Full code Problem List: 1. Cellulitis 2. Lyme disease 3. At high risk for tick borne illness 4. Animal bite with open wound Pain Ratin Pain Location: Left shoulder blade region Pain Goal: Pain 4 or less Pain Plan: Tylenol, ibuprofen Tomorrow's Labs & Rationales: CBC - white count, H&H SALVATORE DOLL,ISAURO 08/20/16 1106: Attending MD Review Statement Attending Statement Attending MD Statement: examined this patient, discuss w/resident/PA/CLOTHING AND TEXTILES TEACHER, agreed w/resident/PA/CLOTHING AND TEXTILES TEACHER, reviewed EMR data (avail) Attending Assessment/Plan: 36F no PMH presenting with 1 week of rash on her left upper back that has become warmer, more tender, has spread to involve more of her left upper back, now with fever 104, myalgia, and weakness. Appears to have remnants of a bite torri on her back. Was doing a lot of work in the [employer] but does not recall being bit. Initially, nack warm warm, erythematous, and tender without discharge. Today, patient feels much better. She is awake and alert, and her myalgia has significant improved. The erythema on her back has dramatically improved, and she is no longer tender. She has remained afebrile overnight. Cultures NGTD. 1. Sepsis (resolved) 2. Left upper back cellulitis 3. Diffuse myalgia 4. Generalized weakness Plan - Continue on general medicine - Continue Unasyn - Follow cultures - Reculture if febrile - IV hydration - Tylenol PRN - ID consult - DVT PPx - Anticipated discharge tomorrow. Please send CMR to pharmacy for review.
--- NOTE | 2016-08-20 10:59 | PN- Infect Dx ---
Subjective Subjective: Afebrile. She feels much improved with no further arthralgias or myalgias. Objective Last 24 Hrs of Vital Signs/I&O Vital Signs Date Time Temp Pulse Resp B/P B/P Pulse O2 O2 Flow FiO2 Mean Ox Delivery Rate 08/20 0630 99.7 97 20 110/70 98 Room Air 08/19 2318 98.5 90 18 102/69 99 Room Air 08/19 1747 117 18 130/78 94 Room Air 08/19 1740 99.8 08/19 1411 99.0 97 20 104/62 100 Room Air Intake & Output 08/20 1600 08/20 0800 08/20 0000 Intake Total 300 250 Output Total 200 Balance 100 250 Intake, IV 200 Intake, Oral 100 250 Output, Urine 200 Physical Exam Other Physical Findings: She appears comfortable in no acute distress Skin macular rash on the upper back improved, minimally tender to palpation, with an eschar to the left of the midline; no clear target lesion noted Results Last 24 Hours of Lab Results: Lyme titer (PRINCESS) 0.99 (equivocal) with Western blot pending Last 24 Hours of Deejay Results: Blood cultures August 18 negative Assessment/Plan Impression: Improved with defervescence and with white blood cell count, at least yesterday, remaining normal on Unasyn Day 2 of treatment for possible Lyme, with PRINCESS equivocal, versus cellulitis. Suggestion: 1. Follow-up Lyme Western blot 2. Continue Unasyn, but if continues to improve can change to Augmentin 875 mg po every 12 hours to complete a 14 day course of treatment
--- NOTE | 2016-08-20 13:45 | Patient Discharge Instructions ---
Discharge Instructions General Discharge Information You were seen/treated for: Fever with rash Special Instructions: Please follow up with in a week to establish care (PCP) Please take your medications regularly Diet Continue normal diet: Yes Activity Full Activity/No Limits: Yes Acute Coronary Syndrome Inclusion Criteria At DC or during hospital stay patient has or had the following: ACS DIAGNOSIS No Discharge Core Measures Meds if any: Prescribed or Continued at Discharge Meds if any: NOT Prescribed or Continued at Discharge Congestive Heart Failure Inclusion Criteria At DC or during hospital stay patient has or had the following: CHF DIAGNOSIS No Discharge Core Measures Meds if any: Prescribed or Continued at Discharge Meds if any: NOT Prescribed or Continued at Discharge Cerebrovascular accident Inclusion Criteria At DC or during hospital stay patient has or had the following: CVA/TIA Diagnosis No Discharge Core Measures Meds if any: Prescribed or Continued at Discharge Meds if any: NOT Prescribed or Continued at Discharge Venous thromboembolism Inclusion Criteria VTE Diagnosis No VTE Type NONE VTE Confirmed by (Test) NONE Discharge Core Measures - Per Current guidelines, there needs to be overlap - treatment for the first 5 days of Warfarin therapy. - If discharged on Warfarin prior to 5 days of - overlap therapy, the patient will need to be - assessed for post discharge needs including - *Post discharge parental anticoagulation - *Warfarin and/or parental anticoagulation education - *Follow up date to check INR post discharge At least 5 days overlap therapy as Inpatient No Meds if any: Prescribed or Continued at Discharge Note: Overlap Therapy is Warfarin and Anticoagulant Meds if any: NOT Prescribed or Continued at Discharge
[2016-08-20 13:53] VITALS: BP 110/70
[2016-08-20] MEDS ORDERED: AUGMENTIN 875-1 EACH PO (15:52)
[2016-08-20 22:36] VITALS: BP 112/62
[2016-08-21 07:04] VITALS: BP 108/66
--- NOTE | 2016-08-21 07:29 | PN- Housestaff ---
Subjective Follow-up For: rash with fever Subjective: I saw and examined the patient today morning She is doing much better, denies any pain. No overnight events. Review of Systems Constitutional: Reports: see HPI. Objective Last 24 Hrs of Vital Signs/I&O Vital Signs Date Time Temp Pulse Resp B/P B/P Pulse O2 O2 Flow FiO2 Mean Ox Delivery Rate 08/21 0704 98.0 74 20 108/66 95 Room Air 08/20 2236 98.0 80 20 112/62 100 Room Air 08/20 1353 97.7 87 20 110/70 100 Room Air Intake & Output 08/21 0800 08/21 0000 08/20 1600 Intake Total 695 081 4839 Output Total 450 300 800 Balance -295 862 9061 Intake, IV 130 130 120 Intake, Oral 843 750 5809 Number 1 Bowel Movements Output, Urine 450 300 800 Physical Exam General Appearance: Alert, Oriented X3, Cooperative, No Acute Distress Skin: Rash improved a lot - still hot and mild tender. HEENT: Atraumatic, PERRLA, EOMI Neck: Supple Cardiovascular: Normal S1, Normal S2 Lungs: Clear to Auscultation, Normal Air Movement Abdomen: Normal Bowel Sounds, Soft, No Tenderness Neurological: Normal Gait, Normal Speech, Strength at 5/5 X4 Ext, Normal Tone, Sensation Intact, Cranial Nerves 3-12 NL Extremities: No Clubbing, No Cyanosis, No Edema Current Medications: Current Medications Sig/Stu Start time Last Medication Dose Route Stop Time Status Admin Acetaminophen 650 MG Q4P PRN 08/18 194 AC 08/19 PO 0251 Ampicillin Sodium/ 1,500 MG Q6 08/19 1328 AC 08/21 Sulbactam Sodium IV 0550 Sodium Chloride 100 ML Enoxaparin Sodium 40 MG DAILY 08/19 1000 AC 08/20 SC 0922 Ibuprofen 400 MG Q6P PRN 08/18 1945 AC 08/20 PO 1721 Ketorolac 30 MG .STK-MED ONE 08/20 1854 DC Tromethamine IM 08/20 185 Ketorolac 30 MG .STK-MED ONE 08/20 0928 DC Tromethamine IM 08/20 0929 Ketorolac 30 MG Q6-PRN PRN 08/19 0300 AC 08/20 Tromethamine IV 1855 Lactobacillus 1 CAP DAILY 08/20 1337 AC 08/20 Acidophilus PO 1721 Lidocaine 1 PAT DAILY 08/19 0300 AC 08/19 EXT 0314 Ondansetron HCl 4 MG Q6P PRN 08/19 1300 AC IV Assessment/Plan Assessment: Patient is a 36-year-old female with no significant past medical history 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 She is febrile at presentation with a Tmax of 104, tachycardic (HR 156), appears toxic. On examination there is a skin lesion in the left shoulder. With tender annular rash although masked with extensive tattoos. At this point my differentials include acute Lyme's disease, spider bite (probably brown recluse) , STARI (southern tick associated rash illness). Admitted to general medicine floor Acute febrile illness with rash - presumably acute Lyme's disease * Started on IV Unasyn 1.5gm Q6 to cover both cellulitis and lymes although its unclear for now - as improving we will converted to Augmentin twice a day tomorrow for a total course of 14 days. * She doesn't really recall any tick bite/spider bite recently - presumably tick bite due to associated anesthetic effect * Lyme titers shows 0.99, pending further send outs * Pain control with Tylenol/ibuprofen * Patient reports hives secondary to opiates - we will try to avoid at the moment to prevent confusion * is on board - appreciate recommendations. * Daily CBC (no leukopenia/thrombus cytopenia/anemia at the moment) Extensive tattoos * Patient had tattoos all over her body. * Rash is not clearly demarcated secondary to tattoos. * Check hepatitis panel * Denies any drug abuse/alcohol/smoking DVT prophylaxis * Alps CODE STATUS * Full code Problem List: 1. Cellulitis 2. Lyme disease 3. At high risk for tick borne illness 4. Animal bite with open wound Pain Ratin Pain Location: left shoulder region Pain Goal: Pain 4 or less Pain Plan: tylenol and ibuprofen Tomorrow's Labs & Rationales: none
--- NOTE | 2016-08-21 08:05 | Discharge Summary ---
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 She is febrile at presentation with a Tmax of 104, tachycardic (HR 156), appears toxic. On examination there is a skin lesion in the left shoulder. With tender annular rash although masked with extensive tattoos. Possible lyme vs cellulitis was the differential. Lymes titers are positive (0.99) -- send out is negative for westren blot and reactive to both IgM and IgG antibodies. Admitted to general medicine floor Acute febrile illness with rash - presumably acute Lyme's disease She doesn't really recall any tick bite/spider bite recently. Intially started on Doxycycline - however switched to IV Unasyn 1.5gm Q6 to cover both cellulitis and lymes although its unclear. As she started to improve converted to Augmentin twice a day for a total course of 14 days. Lyme titers shows 0.99 - equivocal results, however further send out is negative for westren blot and reactive to IgG and IgM. Pain control with Tylenol/ibuprofen as patient reported hives secondary to opiates. Extensive tattoos Patient had tattoos all over her body. Rash is not clearly demarcated secondary to tattoos. Denies any drug abuse/alcohol/smoking Patient made a phone call next day of discharge (08/22/16), requesting changed in medication as Augmentin causes significant GI upset (Nausea and vomiting ), so prescribed cefuroxime 500mg BID for next 10days. Prescription sent to [facility], [place]. Although I tried to communicate this with patient several times, we couldnt reach out. Complications: NONE Allergies: Coded Allergies: codeine (N/V 08/18/16) morphine (FEVER, HIVES 08/18/16) povidone-iodine (From BETADINE) (FEVER, HIVES 08/18/16) soap (From BETADINE) (FEVER, HIVES 08/18/16) Significant Procedures: NONE Pertinent Lab Results: As above Disposition Summary Disposition Principal Diagnosis: Rash with febrile illness Additional Diagnosis: NONE Discharge Disposition: home or self care Discharge Instructions General Discharge Information Code Status: Full Code Patient's Diet: Regular diet Patient's Activity: activity as tolerated Follow-Up Instructions/Appts: Please follow up with in a week to establish care. Please take your medications regularly Medications at Discharge Discharge Medications: Continue taking these medications: Multivitamin (Multi-Day Vitamins) 1 EACH TABLET 1 Tablet ORAL DAILY Start taking the following new medications: Amoxicillin/Potassium Clav (Augmentin 875-125 Tablet) 875 MG-125 MG TABLET 1 Tablet ORAL TWICE DAILY Qty = 22 No Refills Instructions: Please take twice a day Copies To: LAURA DOLL,B Attending MD Review Statement Documenting Attending: ISAURO CHASE MD
[2016-08-21] MEDS ORDERED: AUGMENTIN 875-1 EACH PO (11:14)
== END 2016-08-21 12:15 | DRG 868 ==
LOC: ERH 16:03 → 2NB 18:15 → ERHI 18:15 → 2NB 18:15 → ENRESERV 19:05 → CANRESERV 19:05 → ENRESERV 19:14 → ENTRNSPT 19:46 → 2NB 19:58 → CMPTRNSPT 20:04 → ENPENDDIS 08-21 11:42 → 2NB 08-21 12:15
PROVIDERS: Internal Medicine; Physician Assistant Medical; ADMIT Internal Medicine
DX: A69.20 Lyme disease, unspecified (principal); L03.312 Cellulitis of back [any part except buttock and flank]; M79.1 Myalgia
CPT/HCPCS: 2NBSP; 86618; 36415; 82436; 87040; 93005; 93010; 96374; 96375; J1650; J1885; J2405